=== PATIENT | male | born 2000 | race Caucasian/White ===

== ENCOUNTER 2023-11-19 08:03 | Emergency (ER) | payer SELFPAY ==
[2023-11-19 08:12] VITALS: BP 130/75; PULSE 91; TEMP 36.6; O2SAT 98; BMI 25.7
--- NOTE | 2023-11-19 08:41 | ED_ITS ---
HPI - Abdominal Pain 2 General: Chief Complaint: Abdominal Pain Stated Complaint: abd pain left side, lower back, N/V Time Seen by Provider: 11/19/23 08:17 Source: patient Mode of arrival: ambulatory History of Present Illness: 23-year-old male presents emergency room with complaint of lower abdominal pain in the left lower quadrant for the last 3 days radiates around from his back down to the across the flank and left lower quadrant all the way into the left testicle. He noticed that palpation and movement seem to worsen it no precipitating injury or cause. He is not had this before. He does not associate any dysuria urgency or frequency with his symptoms. Has not had any vomiting or diarrhea no history of kidney stones. No rash has been noted. No vomiting or diarrhea. He also notices a deep inspiration pain is worse MD elicited complaint: abdominal pain Onset (ago): day(s) (3) Pain Consistency: constant Location: LLQ Severity: mild Quality: stabbing Radiation: other (Left testicle) Migration to: L flank and other (Left testicle) Exacerbating factors: movement and other (Palpation) Relieving factors: rest Associated Symptoms: Denies chills, dysuria and fever(s) Review of Systems 2 Const: Denies: fever(s) or chills Card: Denies: chest pain Resp: Denies: dyspnea GI: Denies: abdominal pain : Denies: dysuria, urinary frequency or urinary urgency Musc: Denies: neck pain or back pain Skin/Breast: Denies: rash Physical Exam 2 Const: GENERAL APPEARANCE: cooperative and comfortable O RIENTATION/CONSCIOUSNESS: Yes awake, Yes oriented to person, Yes oriented to place and Yes oriented to time HENMT: COMMON NORMALS: normocephalic, atraumatic and hearing grossly normal bilaterally HEAD & SCALP: normocephalic and atraumatic Resp: COMMON NORMALS: normal respiratory effort, No retractions, No use of accessory muscles and clear to auscultation bilaterally AUSCULTATION: clear to auscultation bilaterally Cardio: COMMON NORMALS: regular rate, regular rhythm and No murmurs present (Cardio) RATE: regular rate RHYTHM: regular rhythm GI: COMMON NORMALS: No hepatosplenomegaly present AUSCULTATION: Yes normoactive bowel sounds PALPATION: Yes Tenderness to palpation present (GI) Details: LLQ, No Guarding due to palpation present (GI) and Yes No hepatosplenomegaly present Extremity: COMMON NORMALS: normal to inspection, capillary refill normal, no clubbing, cyanosis or edema, no calf tenderness and no pedal edema Neuro: SENSORIUM/ORIENTATION: Yes oriented to person, Yes oriented to place and Yes oriented to time Skin: COMMON NORMALS: no rashes or lesions noted GENERAL SKIN EXAM: no rashes or lesions noted Course 2 Vital Signs: Vital signs: Vital Signs Temperature 97.9 F 11/19/23 08:12 Pulse Rate 91 11/19/23 08:12 Blood Pressure 130/75 11/19/23 08:12 Pulse Oximetry 98 11/19/23 08:12 Oxygen Delivery Me thod Room Air 11/19/23 08:12 MDM - Abdominal Pain Medical Decision Making Reviewed CT with Dr. Randhawa. She feels it may be either diverticulitis or fair amount of inflammation around the area of concern in the descending colon. However her white count is normal. Consult to Dr. Pierre he reviewed the films CC was in the department seen the patient personally. He feels it is not an acute surgical case at this point and recommends Augmentin twice a day for 14 days follow-up with him in his office for colonoscopy at a later date. Reviewed with the patient. Recommend clear liquid diet 24 to 48 hours and advance as tolerated use pain medications nausea medications as needed Augmentin twice a day. Medical Records I reviewed the patient's medical records. Lab Data I reviewed the patient's lab results. 11/19/23 08:30 11/19/23 08:30 Labs/Radiology: Laboratory Results WBC 10.97 10^3/uL (3.29-11.43) 11/19/23 08:30 RBC 4.82 10^6/uL (3.85-5.65) 11/19/23 08:30 Hgb 15.00 g/dL (11.27-16.99) 11/19/23 08:30 Hct 43.3 % (37-53) 11/19/23 08:30 MCV 89.8 fl (82-101) 11/19/23 08:30 MCH 31.1 pg (27-33) 11/19/23 08:30 MCHC 34.6 g/dL (30-55) 11/19/23 08:30 RDW 12.2 % (12.1-15.1) 11/19/23 08:30 Plt Count 123 10^3/cmm (157-399) L 11/19/23 08:30 MPV 11.8 fL (7.4-10.4) H 11/19/23 08:30 Neut % (Auto) 70.7 % 11/19/23 08:30 Lymph % (Auto) 17.0 % 11/19/23 08:30 Spink % (Auto) 10.8 % 11/19/23 08:30 Eos % (Auto) 0.6 % 11/19/23 08:30 Baso % (Auto) 0.4 % 11/19/23 08:30 Neut # (Auto) 7.76 10^3/uL (1.8-7.7) H 11/19/23 08:30 Lymph # (Auto) 1.9 10^3/uL (0.8-4.8) 11/19/23 08:30 Spink # (Auto) 1.2 10^3/uL (0.2-0.9) H 11/19/23 08:30 Eos # (Auto) 0.1 10^3/uL (0.0-0.8) 11/19/23 08:30 Baso # (Auto) 0.0 10^3/uL (0.0-0.1) 11/19/23 08:30 Nucleated RBC % (auto) 0 % 11/19/23 08:30 Nucleated RBCs # 0.0 /100WBC 11/19/23 08:30 Sodium 138 mmol/L (136-145) 11/19/23 08:30 Potassium 4.2 mmol/L (3.5-5.1) 11/19/23 08:30 Chloride 99 mmol/L (98-107) 11/19/23 08:30 Carbon Dioxide 28 mmol/L (22-29) 11/19/23 08:30 Anion Gap 15.2 (5-19) 11/19/23 08:30 BUN 15 mg/dL (6-20) 11/19/23 08:30 Creatinine 1.0 mg/dL (0.7-1.2) 11/19/23 08:30 GFR Calculation 91.0 mL/min (90-130) 11/19/23 08:30 Glucose 107 mg/dL (65-115) 11/19/23 08:30 Calculated Osmolality 287 mOsm/kg (285-295) 11/19/23 08:30 Calcium 9.1 mg/dL (8.5-10.5) 11/19/23 08:30 Total Bilirubin 1.1 mg/dL (0.15-1.2) 11/19/23 08:30 AST 22 U/L (0-40) 11/19/23 08:30 ALT 30 U/L (0-41) 11/19/23 08:30 Alkaline Phosphatase 97 U/L (40-130) 11/19/23 08:30 Total Protein 7.3 g/dL (6.6-8.7) 11/19/23 08:30 Albumin 4.4 g/dL (3.5-5.2) 11/19/23 08:30 Globulin 2.9 g/dL (1.3-4.6) 11/19/23 08:30 Lipase 18 U/L (13-60) 11/19/23 08:30 Urine Color Yellow (Yellow) 11/19/23 09:40 Urine Appearance Clear (CLEAR) 11/19/23 09:40 Urine pH 7 (5-7) 11/19/23 09:40 Ur Specific [place] 1.005 (1.005-1.030) 11/19/23 09:40 Urine Protein Neg (Negative) 11/19/23 09:40 Urine Glucose (UA) Norm (Normal) 11/19/23 09:40 Urine Ketones 1+ (Negative) H 11/19/23 09:40 Urine Blood Neg (Negative) 11/19/23 09:40 Urine Nitrate Negative (Negative) 11/19/23 09:40 Urine Bilirubin Neg (Negative) 11/19/23 09:40 Urine Urobilinogen Norm mg/dL (Negative) 11/19/23 09:40 Ur Leukocyte Esterase Negative (Negative) 11/19/23 09:40 All radiology interpretation(s) finalized by discharge Discharge Plan Discharge Patient Disposition: Home Clinical Impression: Diverticulitis Condition: Stable Prescriptions: New amoxicillin-pot clavulanate 875-125 mg tablet 1 tab PO BID Qty: 28 0RF hydrocodone-acetaminophen 5-325 mg tablet 1 tab PO Q6H PRN (Reason: pain) Qty: 10 0RF promethazine 25 mg tablet 25 mg PO Q6H PRN (Reason: nausea and vomiting) Qty: 20 0RF No Action multivitamin Tablet 1 tab PO DAILY zinc acetate 50 mg (zinc) Capsule 50 mg PO DAILY iron 325 mg (65 mg iron) Tablet 325 mg PO DAILY Thermal 3 Fish Oil 684-1,200 mg Capsule,Delayed Release(Dr/Ec) 1 cap PO DAILY magnesium oxide 400 mg magnesium Tablet 400 mg PO DAILY Discharge Orders: Discharge ED (Routine); Ordered 11/19/23 Ordered By: Gilmar Cevallos Discharge Diet: Clear Liquid Discharge Activity: Increase activity as tolerated Patient Instructions: Opioid Safety, Pain Management Activity Restrictions/Additional Instructions: Thank you for choosing [facility] for your healthcare needs today. Please realize this is an emergency room and that we are providing you with a medical screening exam and this may not be complete and all inclusive of all the testing and or work up that you may need to determine your ailment or severity of your illness. It is very important that you follow up as instructed or that you return to the Emergency Department should you have concerns or if your condition changes or worsens in any way. You are seen today for abdominal pain CT shows an area of inflammation that may be an epiploic appendagitis or possible solitary diverticuli with some inflammation. Dr. Pierre CeKatiU and reviewed the films and chart he recommends that we start you on antibiotics for 14 days follow-up with him in his office in 10 to 14 days he will schedule a colonoscopy at a later date. Coding Level of Care Code ED Pharmaceutical Salesperson for Nandini Ponce
[2023-11-19 08:44] LABS: Basophils % 0.4 %; Eosinophils # 0.1 10^3/uL (0.0-0.8); Eosinophils % 0.6 %; Hematocrit 43.3 % (37-53); Lymphocytes # 1.9 10^3/uL (0.8-4.8); Mean Corpuscular HGB Conc 34.6 g/dL (30-55); Mean Corpuscular Hemoglobin 31.1 pg (27-33); Mean Corpuscular Volume 89.8 fl (82-101); Mean Platelet Volume 11.8 fL (7.4-10.4); Monocytes # 1.2 10^3/uL (0.2-0.9); Monocytes % 10.8 %; Neutrophils # 7.76 10^3/uL (1.8-7.7); Neutrophils % 70.7 %; Nucleated Red Blood Cells % 0 %; Platelet Count 123 10^3/cmm (157-399); Red Blood Count 4.82 10^6/uL (3.85-5.65); Red Cell Distribution Width 12.2 % (12.1-15.1); White Blood Count 10.97 10^3/uL (3.29-11.43)
[2023-11-19 09:04] LABS: Alanine Aminotransferase 30 U/L (0-41); Albumin Level 4.4 g/dL (3.5-5.2); Alkaline Phosphatase 97 U/L (40-130); Anion Gap 15.2 (5-19); Aspartate Amino Transferase 22 U/L (0-40); Blood Urea Nitrogen 15 mg/dL (6-20); Calcium 9.1 mg/dL (8.5-10.5); Carbon Dioxide 28 mmol/L (22-29); Chloride 99 mmol/L (98-107); Globulin 2.9 g/dL (1.3-4.6); Glucose 107 mg/dL (65-115); Lipase 18 U/L (13-60); Osmolality Calculated 287 mOsm/kg (285-295); Potassium 4.2 mmol/L (3.5-5.1); Sodium 138 mmol/L (136-145); Total Bilirubin 1.1 mg/dL (0.15-1.2); Total Protein 7.3 g/dL (6.6-8.7)
--- NOTE | 2023-11-19 09:14 | CT_ITS ---
WS: [id number] CT ABDOMEN AND PELVIS NONCONTRAST HISTORY: flank pain TECHNIQUE: Imaging performed through the abdomen and pelvis. Coronal and sagittal reformats are submi tted. All CT scans at [facility] use at least one of these dose optimization techniques: auto mated exposure control; mA and/or kV adjustment per patient size (includes targeted exams where dose is matched to clinical indication); or iterative reconstruction. DLP: 464.13 mGy.cm COMPARISON: None available. Lower thorax: Lung bases are clear. Visualized heart is normal. No hiatal hernia. Liver: Normal size liver. No mass or bile duct dilatation. Gallbladder: Normal gallbladder. No pericholecystic fluid or cholelithiasis. No gallbladder wall thic kening. Pancreas: Normal size and attenuation. Normal pancreatic duct. No pancreatitis or mass. Spleen: Normal. Adrenal glands: Normal. No mass. Right kidney: Normal size kidney with no mass or hydronephrosis. Left kidney: Normal size kidney with no mass or hydronephrosis. Aorta: Normal abdominal aorta, no aneurysm or atherosclerosis. No free fluid, intraperitoneal air or significant lymphadenopathy. GI tract: Significant abnormality involving the LEFT descending colon. There is a large area of infla mmation extending over a length of approximately 9 cm. Pericolonic fluid and stranding and wall thick ening. There is a large amount of submucosal edema in the descending colon. There is a single focus o f marked increased density measuring 6 mm in the muscularis of the descending colon. This is the larg est area of inflammation. This is partially protruding through the muscularis and may be within a div erticulum. There are no additional diverticula. The dense appearance suggests this may be a foreign b sarah. In a patient of this age diverticulosis is not typically visualized and there are no additional diverticula. Abdominal wall: Negative. No hernia. Pelvis: Normal. Osseous structures: Unremarkable. IMPRESSION: 1. Long segment area of acute colitis involving the descending colon. There is marked pericolonic st randing and some fluid. Inflammatory epicenter is at the site of the dense focus in the muscularis of the mid descending colon. This could be a diverticulum with inspissated secretions or foreign body. There are no additional diverticula. 2. No renal obstruction or calcifications. Notified Gilmar Cevallos DO at 11/19/2023 10:05 AM.
[2023-11-19] MEDS: sodium chloride 0.9% 1,000 ML 999 ML IV (09:19)
[2023-11-19] MEDS: ketorolac 30 mg/mL INJ IVP (09:22)
[2023-11-19 09:58] LABS: Add Urine Microscopic? NO; Charge for UA Resulting for Rev
[2023-11-19 10:08] LABS: Bilirubin Urine Neg (Negative); Blood Urine Neg (Negative); Glucose Urine UA Norm (Normal); Ketones Urine 1+ (Negative); Leukocyte Esterase Urine Negative (Negative); Nitrate Urine Negative (Negative); Protein Urine Neg (Negative); Specific Gravity, Urine 1.005 (1.005-1.030); Urine Appearance Clear (CLEAR); Urine Color Yellow (Yellow); Urobilinogen Urine Norm (Negative); pH Urine 7 (5-7)
[2023-11-19] MEDS: morphine 4 mg/mL SDV 1 mL IVP ×2 (10:50→13:03)
[2023-11-19] MEDS: piperacillin-tazobactam 3.375 GM in sodium chloride 0.9% (plus) 50 ML IV (10:59)
--- NOTE | 2023-11-19 11:31 | P.CONIM_ITS ---
Providers/Reason For Consult 2 Consulting Physician/Specialty*: Dr. David Pierre, /General surgery Reason for Consult*: Abdominal pain History of Present Illness History of Present Illness Paresh Yañez is a 23 year old male who presented to the hospital with 3-day history of left lower quadrant abdominal pain that radiates down to his left testicle. Palpation makes pain worse. Nothing makes pain better. The pain does not radiate. He denies any nausea or vomiting. Denies any diarrhea, constipation, hematochezia and/or melena. CT shows possible uncomplicated diverticulitis. Review of Systems 2 General: Reports: 10 or more systems reviewed and unremarkable except in HPI and below Medications/Allergies Home Medications Medication Instructions Recorded Confirmed Last Taken Type amoxicillin 875 mg-potassium 1 tab PO BID #28 tabs 11/19/23 11/28/23 Unknown Rx clavulanate 125 mg tablet ferrous sulfate 325 mg (65 mg 325 mg PO DAILY 11/19/23 11/28/23 Unknown History iron) tablet (iron) magnesium oxide 400 mg PO DAILY 11/19/23 11/28/23 Unknown History multivitamin 1 tab PO DAILY 11/19/23 11/28/23 Unknown History omega-3 fatty acids-fish oil 684 1 cap PO DAILY 11/19/23 11/28/23 Unknown History mg-1,200 mg capsule,delayed release promethazine 25 mg tablet 25 mg PO Q6H PRN nausea and 11/19/23 11/28/23 Unknown Rx vomiting #20 tabs zinc acetate 50 mg (zinc) capsule 50 mg PO DAILY 11/19/23 11/28/23 Unknown History Allergies Allergy/AdvReac Type Severity Reaction Status Date / Time No Known Allergies Allergy Verified 11/28/23 10:58 PFSH Acute 2 PFSH: Family History Mother Cancer carcinoid on appendix Father Heart disease Social History Smoking and tobacco/nicotine status: never used tobacco/nicotine Alcohol intake: never Vitals/I&O/Wt Last Vital Signs Temp 97.9 F 11/19/23 08:12 Pulse 91 11/19/23 08:12 BP 130/75 11/19/23 08:12 Pulse Ox 98 11/19/23 08:12 O2 Del Method Room Air 11/19/23 08:12 Weight last 48 hrs Weight 190 lb Physical Exam 2 Narrative: General : Patient is well developed , no acute distress, oriented x3 Head : Normal cephalic, a-traumatic. Ears : Pinnae and external canal are normal. Hearing is normal. Eyes : PERRLA, Sclera and injection are normal. No conjunctival discharge. Nose : Mucous membranes are without erythema. Throat : buccal mucosa is normal, gums are without significant recession or hypertrophy. Lungs : Equal chest rise bilaterally, no use of accessory muscles, trachea is midline. Cor : Rate and rhythm are normal. Abdomen : Soft, ND, mild left lower quadrant tenderness, no g/r/m Extremities : No edema, no cyanosis or clubbing, dorsalis pedis pulses are present bilaterally, non-tender to palpation of calves. Upper extremities are normal bilaterally. Back : non-tender to palpation, no CVA tenderness. Neuro : CN II - XII intact, Upper and lower extremities have equal and full strength Data 11/19/23 08:30 11/19/23 08:30 Micro: Microbiology 11/19/23 10:48 Blood Culture - Preliminary Blood SPECIMEN COLLECTED 11/19/23 10:42 Blood Culture - Preliminary Blood SPECIMEN COLLECTED A&P Assessment and plan (1) Diverticulitis: Plan 14-day course of Augmentin Follow-up in my office in 2 weeks He will need a colonoscopy in 4 to 6 weeks Otherwise follow-up as needed Coding Level of Care Code 25701 Diagnoses Diverticulitis K57.92
--- NOTE | 2023-11-19 12:08 | DCPLANNER ---
Message sent to Gen surg for a follow up appointment - Diverticulitis.
[2023-11-19 12:41] VITALS: BP 113/67; PULSE 67; RESP 16; O2SAT 96
== END 2023-11-19 13:54 | disposition home or self-care (01) ==
PROVIDERS: Emergency Provider Family Medicine
DX: K57.92 Diverticulitis of intestine, part unspecified, without perforation or abscess without bleeding (principal)
CPT/HCPCS: 36415; 74176; 80053; 81003; 83690; 85025; 87040; 96361; 96365; 96366; 96375; 96376; 99285; J1885; J2270; J2543; J7030